=== PATIENT | female | born 1990 | race Caucasian/White ===

== ENCOUNTER 2017-03-15 01:15 | Emergency (ER) | payer MEDICAID ==
[2017-03-15 01:26] VITALS: TEMP 98.6
--- NOTE | 2017-03-15 04:21 | EDPHY ---
H & P Stated Complaint: possibly has pneumonia Time Seen by Provider: 03/15/17 02:34 HPI/ROS: HPI The patient presents with cough, sore throat for the last 2 weeks. She has not had a fever. Cough is intermittent, productive of sputum, moderate in severity. REVIEW OF SYSTEMS Constitutional: No fever, no chills. Eyes: No discharge. ENT: Positive for sore throat. Cardiovascular: No chest pain, no palpitations. Respiratory: Positive for cough, no shortness of breath. Gastrointestinal: No abdominal pain, no vomiting. Genitourinary: No hematuria. Musculoskeletal: No back pain. Skin: No rashes. Neurological: No headache. PMHx: Right leg injury Soc Hx: Tobacco use PHYSICAL General Appearance: Alert, no distress Eyes: Pupils equal and round no pallor or injection ENT, Mouth: Mucous membranes moist Respiratory: There are no retractions, lungs are clear to auscultation Cardiovascular: Regular rate and rhythm Gastrointestinal: Abdomen is soft and non-tender, no masses, bowel sounds normal Neurological: A&O, moves all extremities Skin: Warm and dry, no rashes Musculoskeletal: Neck is supple non tender Extremities: symmetrical, full range of motion Psychiatric: Patient is oriented X 3, there is no agitation Source: Patient Exam Limitations: No limitations - Personal History LMP (Females 10-55): 1-7 Days Ago Current Tetanus/Diphtheria Vaccine: No - Medical/Surgical History Hx Asthma: No Hx Chronic Respiratory Disease: No Hx Diabetes: No Hx Cardiac Disease: No Hx Renal Disease: No Hx Cirrhosis: No Hx Alcoholism: No Hx HIV/AIDS: No Hx Splenectomy or Spleen Trauma: No Other PMH: PSHx: r leg titanium lesly. PMHx: bipolar, PTSD, ADHD - Social History Smoking Status: Current every day smoker Constitutional: Initial Vital Signs Temperature (C) 37 C 03/15/17 01:21 Heart Rate 112 H 03/15/17 01:21 Respiratory Rate 18 03/15/17 01:21 Blood Pressure 114/81 H 03/15/17 01:21 O2 Sat (%) 95 03/15/17 01:21 O2 Delivery Mode Room Air Allergies/Adverse Reactions: No Known Allergies Allergy (Unverified 03/15/17 01:19) Home Medications: Medication Instructions Recorded Pati 03/15/17 Benzonatate [Tessalon Pearles (RX)] 100 mg PO Q6H PRN #30 cap 03/15/17 Concerta 03/15/17 Cymbalta 03/15/17 GABAPENTIN 03/15/17 LaMICtal 03/15/17 [place] Carbonate 03/15/17 Propranolol HCl 03/15/17 Medical Decision Making - Diagnostics Imaging Results: Chest x-ray two view shows no infiltrate, no cardiomegaly, interpreted by me, radiology interpretation is pending. Differential Diagnosis: This is a 27-year-old female with cough, sore throat for the last several days, getting progressively worse. In the emergency department, rapid strep was negative, influenza testing was negative, chest x-ray showed no infiltrate. Patient declined symptomatic treatment with albuterol neb. His we have discussed her test results with her. She will be discharged with a prescription for Tessalon Perles. I feel she likely has a viral URI. Departure - Departure Disposition: Home, Routine, Self-Care Clinical Impression: Cough, Sore throat Condition: Good Instructions: Upper Respiratory Infection (ED) Additional Instructions: Please return to the emergency room if your worse in any way. We checked you for pneumonia, flu, strep throat in all of your testing turned out negative. I have given you a referral to the orthopedist and their phone number is below. You can call for an appointment if you would like. Referrals: [facility] [Other] - As per Instructions Jennifer Bocanegra PA [Physician [employer]] - As per Instructions Prescriptions: Benzonatate [Tessalon Pearles (RX)] 100 mg PO Q6H PRN #30 cap PRN Reason: Cough, Mild
[2017-03-15 04:29] VITALS: BP 130/78; PULSE 72; RESP 16; O2SAT 98
== END 2017-03-15 04:28 | disposition home or self-care (01) ==
DX: J02.9 Acute pharyngitis, unspecified (principal); F17.200 Nicotine dependence, unspecified, uncomplicated